=== PATIENT | male | born 1930 | race Caucasian/White ===

== ENCOUNTER 2017-07-03 15:21 | Observation (INO) | payer MEDICARE, OTHER ==
[2017-07-03] MEDS ORDERED: Potassium Chloride 20 MEQ TAB ONE (15:41)
[2017-07-03 16:11] LABS: #Eosinphils 0.1 thou/uL (0.0-0.7); #Lymphocytes 1.4 thou/uL (1.20-3.40); #Monocytes 0.4 thou/uL (0.11-0.59); #Neutrophils 5.6 thou/uL (1.40-6.50); %Basophils 0.5 % (0.0-1.0); %Eosinophils 1.6 % (0.0-10.0); %Lymphocytes 18.9 % (21.0-51.0); %Monocytes 5.5 % (0.0-10.0); Hematocrit 35.1 % (42.0-52.0); Mean Platelet Volume 8.6 fL (7.4-10.4); Red Blood Cell (RBC) Count 3.59 mill/uL (4.70-6.10); White Blood Cell (WBC) Count 7.6 thou/uL (4.8-10.8)
[2017-07-03 16:17] LABS: ALT (SGPT) 16 U/L (8-55); AST (SGOT) 14 U/L (5-34); Alkaline Phosphatase 81 U/L (40-150); Anion Gap 13 mmol/L (10-20); BUN (Urea Nitrogen) 10 mg/dL (8.4-25.7); Bilirubin, Total 0.6 mg/dL (0.2-1.2); CK (CPK) 81 U/L (30-200); Calc. Creatinine Clearance 0 mL/min (70-130); Calcium 8.4 mg/dL (7.8-10.44); Carbon Dioxide 33 mmol/L (23-31); Chloride 99 mmol/L (98-107); Estimated GFR-MDRD 58; Globulin 3.2 g/dL (2.4-3.5); Lipase 18 U/L (8-78); Protein, Total 6.9 g/dL (5.8-8.1)
[2017-07-03 16:20] LABS: Troponin I Less than 0.010 ng/mL (< 0.028)
--- NOTE | 2017-07-03 16:47 | RAD ---
PORTABLE AP CHEST X-RAY: 07/03/2017 HISTORY: Dizziness. Syncope. COMPARISON: 03/23/2016 FINDINGS: The patient is rotated to the right, which accentuates the cardiac silhouette, in addition to the po rtable technique of the study. The cardiac silhouette is probably mildly enlarged. There are linea r densities at the right lung base, which may be related to mild scarring. There is epicardial fat pad at the left lung base, with probable mild atelectasis. The pulmonary vasculature is within norm al limits. Vascular calcifications are seen in the thoracic aorta. No other interval change. IMPRESSION: 1. No acute cardiopulmonary process. 2. Atelectasis at each lung base. POS: [facility]
--- NOTE | 2017-07-03 16:56 | CT ---
CT HEAD WITHOUT CONTRAST: Technique: Multiple axial tomograms were obtained through the head without IV enhancement. History: Syncope. FINDINGS: Ventricles have normal size and position. Mild chronic ischemic white matter change. There is irregularly shaped low density mass like lesion in the corpus callosum posteriorly in the m idline measuring 1.2 cm AP dimension x approximately 1.5 cm width in the axial plane. This lesion ex hibits fat density with Hounsfield units measured in the minus 30-40 range. Lipoma in the corpus sarah losum in the midline posteriorly would be suspected. There is no evidence of acute mass or infarct. There is no evidence of hemorrhage. IMPRESSION: 1. Mild chronic ischemic white matter changes. 2. 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 3. No acute abnormality. POS: [facility]
[2017-07-03 17:15] LABS: Bilirubin Negative (Negative); Blood, Urine Trace (Negative); Glucose, Urine (Dipstick) Negative (Negative); Ketone, Urine Negative (Negative); Nitrite Negative (Negative); Protein, Urine (Dipstick) Trace mg/dL (Neg-Trace); Urobilinogen 0.2 mg/dL (0.2-1.0)
[2017-07-03 17:22] LABS: RBC/HPF 0-3 HPF (0-3); Squamous Epithelial 0-3 HPF (0-3); WBC/HPF 0-3 HPF (0-3)
[2017-07-03] MEDS ORDERED: NS 0.9% w/ 20 MEQ KCL 1,000 ML ONE (17:55)
[2017-07-03 20:35] VITALS: BMI 32.2
[2017-07-03 20:40] LABS: Troponin I Less than 0.010 ng/mL (< 0.028)
[2017-07-03] MEDS ORDERED: NS 0.9% w/ 20 MEQ KCL 1,000 ML IV SCH (21:45)
[2017-07-03] MEDS ORDERED: Aspirin 325 MG TAB PO SCH (22:00)
[2017-07-03] MEDS ORDERED: Ondansetron ODT 4 MG TAB PO PRN (22:01)
[2017-07-03] MEDS ORDERED: HYDROcodone/Acetaminophen 10/325 mg Tablet PO PRN (22:01)
[2017-07-03] MEDS ORDERED: HYDROcodone/Acetaminophen 5/325 mg Tablet PO PRN (22:01)
[2017-07-03] MEDS ORDERED: Acetaminophen 325 MG TAB PO PRN (22:01)
[2017-07-03] MEDS ORDERED: Atorvastatin Calcium 20 MG TAB PO SCH (22:15)
[2017-07-03] MEDS ORDERED: Carvedilol 6.25 MG TAB PO SCH (22:15)
[2017-07-03] MEDS ORDERED: levETIRAcetam 500 MG TAB PO SCH (22:15)
[2017-07-03] MEDS ORDERED: Allopurinol 100 MG TAB PO SCH (22:15)
[2017-07-03] MEDS: Potassium Chloride 20 MEQ TAB PO SCH (22:36)
[2017-07-03 23:23] LABS: Troponin I Less than 0.010 ng/mL (< 0.028)
--- NOTE | 2017-07-04 01:03 | HP ---
PRIMARY CARE PHYSICIAN: Not listed. PRIMARY CERTIFIED PEDIATRIC NURSE PRACTITIONER: Dr. Velazquez. CHIEF COMPLAINT: Low potassium. HISTORY OF PRESENT ILLNESS: Mr. Singh is a pleasant 86-year-old gentleman with history of seizure disorder, sleep apnea, hypertension, and prior DVT, who is seen by Dr. Velazquez on a regular basis . Today, he had labs drawn, I was called by nursing staff. I told him to go straight to the ER for un known reason. On arrival to the ER, his labs were checked, records reviewed, and then found to have a potassium ea rlier today of 2.6 and 2.7 on recheck. We were subsequently called for admission. Patient denies any chest pain or difficulty breathing, no nausea, vomiting, diarrhea, constipation. He has 2-month history of spells of lightheadedness that seemed to be sporadic. He has not actuall y fallen and has not had any injuries. Denies any other current complaints. No fevers or chills. No diarrhea, constipation, nausea, vomit ing. PAST MEDICAL HISTORY: 1. Seizure disorder. 2. Obstructive sleep apnea. 3. Hypothyroidism. 4. Hypertension. 5. History of melanoma. 6. Prostate cancer. 7. Deep venous thrombosis. 8. Gout. PAST SURGICAL HISTORY: Include, 1. Melanoma removal x2 from the right ear and right cheek. 2. Prostatectomy, lymph node status unknown. 3. Hemorrhoidectomy. 4. Bilateral cataract replacement. 5. Left-arm surgery. 6. Pilonidal cyst. HOME MEDICATIONS: 1. Coreg 6.25 mg p.o. b.i.d. 2. Budesonide 3 mg p.o. daily. 3. Levothyroxine 50 mcg daily. 4. Niaspan 500 mg at bedtime. 5. Atorvastatin 20 mg p.o. at bedtime. 6. Allopurinol 100 mg daily. 7. Aspirin 325 mg daily. 8. Benicar HCT 20/12.5 daily. 9. Diphenoxylate/atropine 2.5/0.025 one q.a.m. 10. Iron sulfate 325 mg x2 daily. 11. Isosorbide mononitrate XR 30 mg daily. 12. Keppra 500 mg p.o. b.i.d. 13. Symbicort 160/4.5 two puffs b.i.d. 14. Fludrocortisone 0.1 mg p.o. q.a.m. ALLERGIES: NKDA. FAMILY HISTORY: Negative for clotting or bleeding disorder or no immune dysfunction. SOCIAL HISTORY: Negative for habits x3. He is and his accompanies him. REVIEW OF SYSTEMS: A 10-point review of systems was performed and negative for all other systems ex cept as stated as per HPI. PHYSICAL EXAMINATION: VITAL SIGNS: Temperature 97.9, pulse 70, blood pressure 165/72, respiratory rate 18, satting 97% on room air. GENERAL: He is awake. He is alert. He is oriented x3. He is an obese, well-developed, well-bebeto shed, white male who appears to be in zero distress. HEENT: Normocephalic, atraumatic. Pupils equal, round, and reactive bilaterally, mucous membranes are moist. He has no visible lesions. No thrush. NECK: Supple with no lymphadenopathy, no JVD. No thyromegaly. He has normal carotid upstroke. Th ere is no bruits. LUNGS: Clear anteriorly and posteriorly. He has symmetrical chest movement and good air exchange. He has no wheezes or rales. No prolonged expiratory phase. CARDIOVASCULAR: He has normal S1, S2, no S3 or S4. ABDOMEN: Obese, it is nontender, nondistended with normoactive bowel sounds present in all 4 quadra nts. There is no rebound, rigidity, or guarding. EXTREMITIES: Show no cyanosis, no clubbing with trace pedal edema. He has 1+ dorsalis pedis and po sterior tibial pulses. NEUROLOGIC: Shows cranial nerves II through XII are grossly intact with no focal neurologic deficit s, normal speech, 5/5 strength in all 4 extremities. MUSCULOSKELETAL: Exam is normal to inspection. He has no inflamed or hot joints. He has no palpab le joint effusion. SKIN: Warm, moist, and well-perfused. There is no rash or lesions. LABORATORY DATA: CMP is normal except for potassium of 2.7, 2.6 earlier today. Creatinine 1.18. S ugars 143 and liver functions normal. White blood cell count 7.6, hemoglobin 11.8, hematocrit 35.1, platelets of 110,000. RADIOGRAPHIC STUDIES: He had a brain CT that showed possible lipoma and age related changes. Chest x-ray showed no acute cardiopulmonary disease. ASSESSMENT AND PLAN: 1. Hypokalemia: Cause not quite clear. We will check repeat labs in the morning including magnesi um level. We will replace as indicated. In the meantime, he got 60 mEq of potassium in the ER, manas t was around 7 to 8 hours ago. We will continue 40 mEq p.o. every 4 hours for 3 more doses. The pa clyde is currently on Benicar HCT. HCT could theoretically drop his magnesium level, which could he lp with his potassium. He is not on any Lasix. He is metabolically, otherwise intact. 2. History of seizures: on Keppra 500 b.i.d. We will continue. 3. Sleep apnea, takes CPAP at home, settings unknown. We will not order tonight. 4. Hypothyroidism on levothyroxine, which we will continue. 5. Hypertension on Coreg, Benicar HCT, isosorbide mononitrate. We will continue these. 6. Probable chronic obstructive pulmonary disease on budesonide, Symbicort. We will continue these . We will notify Dr. Velazquez about the patient's admit.
[2017-07-04] MEDS: Potassium Chloride 20 MEQ TAB PO SCH ×2 (02:35→05:57)
[2017-07-04 05:33] LABS: #Eosinphils 0.2 thou/uL (0.0-0.7); #Monocytes 0.5 thou/uL (0.11-0.59); #Neutrophils 3.1 thou/uL (1.40-6.50); %Basophils 0.6 % (0.0-1.0); %Eosinophils 3.4 % (0.0-10.0); %Monocytes 9.2 % (0.0-10.0); Hematocrit 36.6 % (42.0-52.0); Mean Platelet Volume 8.6 fL (7.4-10.4); Red Blood Cell (RBC) Count 3.63 mill/uL (4.70-6.10); White Blood Cell (WBC) Count 5.9 thou/uL (4.8-10.8)
[2017-07-04 05:37] LABS: Anion Gap 11 mmol/L (10-20); BUN (Urea Nitrogen) 9 mg/dL (8.4-25.7); Calc. Creatinine Clearance 92 mL/min (70-130); Calcium 8.3 mg/dL (7.8-10.44); Carbon Dioxide 30 mmol/L (23-31); Chloride 103 mmol/L (98-107); Estimated GFR-MDRD 79; Magnesium 1.2 mg/dL (1.6-2.6)
[2017-07-04] MEDS ORDERED: Levothyroxine Sodium 50 MCG TAB PO SCH (06:00)
[2017-07-04] MEDS ORDERED: Potassium Chloride 40 MEQ in Sodium Chloride 0.9% 500 ML IVPB SCH (06:15)
[2017-07-04] MEDS ORDERED: Mometasone/Formoterol 120 PUFF INHALER INH SCH (06:30)
[2017-07-04] MEDS ORDERED: Magnesium Sulfate 4 GM in Sodium Chloride 0.9% 250 ML 250 ML IVPB SCH (07:00)
[2017-07-04] MEDS ORDERED: Ferrous Sulfate 325 MG TAB PO SCH (08:00)
[2017-07-04 08:19] VITALS: TEMP 98.3
[2017-07-04] MEDS ORDERED: Allopurinol 100 MG TAB PO SCH (09:00)
[2017-07-04] MEDS ORDERED: Enoxaparin Sodium 30 MG/0.3 ML SYRINGE SC SCH (09:00)
[2017-07-04] MEDS ORDERED: Aspirin 325 mg Enteric Coated Tablet PO SCH (09:00)
[2017-07-04] MEDS ORDERED: levETIRAcetam 500 MG TAB PO SCH (09:00)
[2017-07-04] MEDS ORDERED: Diphenoxylate HCl/Atropine Tablet PO SCH (09:00)
[2017-07-04] MEDS ORDERED: Famotidine 20 MG TAB PO SCH (09:00)
[2017-07-04] MEDS ORDERED: Carvedilol 6.25 MG TAB PO SCH (09:00)
[2017-07-04] MEDS ORDERED: Atorvastatin Calcium 20 MG TAB PO SCH (09:00)
[2017-07-04] MEDS ORDERED: Fludrocortisone Acetate 0.1 MG TAB PO SCH (09:00)
[2017-07-04 10:33] LABS: Magnesium 1.3 mg/dL (1.6-2.6)
--- NOTE | 2017-07-04 12:28 | DIS ---
DATE OF ADMISSION: 07/03/2017 DATE OF DISCHARGE: 07/04/2017 PRIMARY CARE PHYSICIAN: Sagar Varela M.D. DISCHARGE DIAGNOSES: 1. Hypokalemia, resolved. 2. Hypomagnesemia, magnesium supplementation started. CONDITION OF PATIENT AT THE TIME OF DISCHARGE: Stable. I assessed Mr. Singh on the day of discharge. He denies any chest pain or shortness of breath. V ital signs are stable. S1 and S2 are heard, regular. Lungs are clear to auscultation bilaterally. DISCHARGE MEDICATIONS: In addition to the home medications as listed on the history and physical no te from 07/03/2017, he is being started on magnesium oxide 400 mg 2 times a day for 5 more days. HOSPITAL COURSE: Mr. Singh is a pleasant 86-year-old gentleman, who was admitted to [facility] on observation status on 07/03/2017 for hypokalemia. He was also found to be h ypomagnesemic. He received potassium supplements, and potassium improved to 4.1 on 07/04/2017, up f rom 2.6 on 07/03/2017. His magnesium was also found to low to 1.3. He is currently receiving intra venous magnesium and also being started on magnesium oxide orally prior to discharge. He is advised to follow up with his primary care physician in 5 to 7 days. On the day of discharge, Mr. Singh has white count 5900, hemoglobin 12.3, platelet count 101,000, sodium 141, potassium 4.1, and creatinine 0.91. He had normal troponins during this hospitalization . Many thanks for allowing me to participate in your patient's care. Please feel free to contact me w ith any questions or concerns. DISCHARGE DESTINATION: Home.
[2017-07-04 12:53] VITALS: BP 164/74
[2017-07-04] MEDS ORDERED: Magnesium Oxide 400 MG TAB PO SCH (21:00)
--- OUTSIDE RECORDS SUMMARY | 2017-07-10 08:36 | XMS | Clinical Summary ---
:1930 Author Organization [facility] Address [address] [place] [address] Phone Care Team Providers Name Role Phone Asked, None Primary Care Provider Unavailable Allergies No Known Allergies Current Medications Prescription Sig. Disp. Refills Start Date End Date Status PROVENTIL HFA 90 INHALE TWO (2) 0 09/08/2015 Active mcg/actuation inhaler PUFF(S) BY MOUTH EVERY 6 HOURS NEEDED. olmesartan-hydrochlorothi Take 1 tablet by Active azide (BENICAR HCT) mouth daily. 20-12.5 mg per tablet carvedilol (COREG) 6.25 Take 6.25 mg by Active MG tablet mouth 2 (two) times a day with meals. niacin (NIASPAN) 500 MG Take 500 mg by Active CR tablet mouth every morning. aspirin (ECOTRIN) 81 MG Take 81 mg by mouth Active enteric coated tablet nightly. phenytoin (DILANTIN) 100 Take 100 mg by Active MG ER capsule mouth nightly. 3 cap budesonide EC (ENTOCORT Take 6 mg by mouth Active EC) 3 mg 24 hr capsule every morning. chlorhexidine (PERIDEX) Apply 15 mL to the Active 0.12 % solution mouth or throat 2 (two) times a day. rivaroxaban (XARELTO) Take 20 mg by mouth Active tablet daily. levothyroxine (SYNTHROID, Take 50 mcg by Active LEVOTHROID) 50 MCG tablet mouth every morning. fluticasone-salmeterol Inhale 1 puff as Active (ADVAIR) 250-50 mcg/dose needed. DISKUS diphenoxylate-atropine Take 1 tablet by Active (LOMOTIL) 2.5-0.025 mg mouth daily. per tablet efinaconazole 10 % Apply topically Active solution with applicator daily. allopurinol (ZYLOPRIM) Take 100 mg by Active 100 MG tablet mouth daily. 2 tab atorvastatin (LIPITOR) 20 Take 20 mg by mouth Active MG tablet daily. fludrocortisone 0.1 mg 01/18/2017 Active tablet Active Problems Problem Noted Date Male urinary stress incontinence 12/16/2015 Malignant neoplasm of prostate 12/16/2015 Mechanical complication of genitourinary device, implant, and graft 12/16/2015 Social History Tobacco Use Types Packs/Day Years Used Date Never Smoker Smokeless Tobacco: Never Used Alcohol Use Drinks/Week oz/Week Comments No Sex Assigned at Date Recorded Not on file Last Filed Vital Signs Vital Sign Reading Time Taken Blood Pressure 128/73 12/16/2015 2:55 PM CDT Pulse 82 12/16/2015 2:55 PM CDT Temperature 36.1 C (97 F) 12/16/2015 2:55 PM CDT Respiratory Rate - - Oxygen Saturation - - Inhaled Oxygen Concentration - - Weight 108 kg (238 lb 12.8 oz) 12/16/2015 2:55 PM CDT Height 188 cm (6' 2") 12/16/2015 2:55 PM CDT Body Mass Index 30.66 12/16/2015 2:55 PM CDT Plan of Treatment Date Type Specialty Care Team Description 02/14/2018 Office Visit Urology Rasta Alonzo MD [address] [facility] [address] [place] [address] Health Maintenance Due Date Last Done Comments ZOSTER VACCINE 1989 PNEUMOCOCCAL POLYSACCHARIDE VACCINE AGE 65 AND OVER 1994 PNEUMOCOCCAL-13 1994 INFLUENZA VACCINE 04/18/2017 Results Not on filefrom Last 3 Months Insurance Payer Benefit Plan / Group Subscriber ID Type Phone Address MEDICARE MEDICARE PART A AND B [id number] Medicare [place], [place] [id number] Home: [phone] [phone] [id number]
== END 2017-07-04 13:49 | disposition home or self-care (01) ==
LOC: SCSER 15:21 → 2SW 19:29
PROVIDERS: ADMIT Internal Medicine; ATTEND Internal Medicine
DX: E87.6 Hypokalemia (principal); E83.42 Hypomagnesemia; G40.909 Epilepsy, unspecified, not intractable, without status epilepticus; I10 Essential (primary) hypertension; I82.409 Acute embolism and thrombosis of unspecified deep veins of unspecified lower extremity; J98.11 Atelectasis; M10.9 Gout, unspecified; G47.33 Obstructive sleep apnea (adult) (pediatric); E03.9 Hypothyroidism, unspecified; Z99.89 Dependence on other enabling machines and devices; Z79.82 Long term (current) use of aspirin; Z79.51 Long term (current) use of inhaled steroids; Z79.899 Other long term (current) drug therapy; Z98.42 Cataract extraction status, left eye; Z98.41 Cataract extraction status, right eye; Z96.1 Presence of intraocular lens; Z90.79 Acquired absence of other genital organ(s); Z98.890 Other specified postprocedural states; Z85.820 Personal history of malignant melanoma of skin; Z85.46 Personal history of malignant neoplasm of prostate
CPT/HCPCS: 70450; 71010; 80048; 80053 ×2; 80061; 82550; 82553; 83690; 83735; 84132; 84484 ×2; 85025 ×2; 93005; 94640; 96365; 96366 ×2; 96372; 96375; 99285; G0378; 36415; 81003; 81015; J0360; J1650; J3475; J3480; J7050

== ENCOUNTER 2017-08-14 13:41 | Emergency (ER) | payer MEDICARE, OTHER ==
--- NOTE | 2017-08-14 14:56 | RAD ---
2 VIEWS RIGHT HIP: Date: 08/14/17 HISTORY: Right hip joint pain. FINDINGS: There is no evidence of a fracture or dislocation. No joint space narrowing is identified. Multiple s urgical clips overlie the pelvis. Degenerative changes are seen at the lumbosacral junction. There ar e metallic densities overlying the soft tissues inferior to the pubic symphysis. This may be related to prior postsurgical change. IMPRESSION: No acute osseous abnormality right hip. POS: [facility]
== END 2017-08-14 15:57 | disposition home or self-care (01) ==
LOC: SCSER 13:41
DX: S76.011A Strain of muscle, fascia and tendon of right hip, initial encounter (principal); E03.9 Hypothyroidism, unspecified; I10 Essential (primary) hypertension; M10.9 Gout, unspecified; W01.0XXA Fall on same level from slipping, tripping and stumbling without subsequent striking against object, initial encounter; Y92.002 Bathroom of unspecified non-institutional (private) residence as the place of occurrence of the external cause

== ENCOUNTER 2018-11-01 11:55 | Outpatient (CLI) | payer MEDICARE, OTHER ==
--- NOTE | 2018-11-01 15:50 | MRI ---
MRI LUMBAR SPINE WITHOUT CONTRAST: HISTORY: Spinal stenosis. COMPARISON: None. TECHNIQUE: MRI lumbar spine is performed without intravenous Gadolinium administration. Multisequential, multip lanar imaging is performed. FINDINGS: There is appropriate signal intensity of the psoas muscles. The visualized solid organs are unremark able. There is an incompletely evaluated T2 hyperintensity in the lower pole of the right kidney. Conus medullaris terminates at the T12-L1 disk space level. Appropriate T1 marrow signal intensity of lumbar vertebrae. Lumbar spine vertebral body height is ma intained. There is no fracture. No significant STIR hyperintensity to suggest vertebral body edema or ligamentous injury. T12-L1: Adequate disk hydration. No significant central canal stenosis or foraminal narrowing. L1-L2: Adequate disk hydration. No significant central canal stenosis. Neural foramen are patent. Mild facet hypertrophy and ligamentum flavum thickening. L2-L3: Adequate disk hydration. No significant loss of disk space height or significant posterior d isk abnormality. There is ligamentum flavum thickening and fact hypertrophy with resultant mild cent ral canal stenosis. Neural foramina are patent bilaterally. L3-L4: Mild loss of disk space height. Generalized disk bulge, ligamentum flavum thickening and fac et hypertrophy result in mild central canal stenosis. Mild right and mild to moderate left foraminal narrowing. L4-L5: Moderate loss of disk space height. There is a generalized disk bulge, ligamentum flavum thi ckening, and facet hypertrophy. There is no significant stenosis of the thecal sac. However, there is narrowing of the right subarticular zone secondary to disk material and facet hypertrophy. There is obscuration of the traversing right L5 nerve root. Moderate to severe right and moderate left for aminal narrowing. L5-S1: Minimal disk desiccation without significant loss of disk space height. No significant centr al canal stenosis. Mild bilateral foraminal narrowing. 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 There is obscuration of the traversing right L5 nerve root secondary to disk material and posttraumatic hypertrophy resulting in narrowing of the ri ght subarticular zone at L4-L5. POS: [facility]
== END 2018-11-01 11:56 | disposition home or self-care (01) ==
LOC: SCSMRI 11:55
PROVIDERS: ATTEND Psychiatry & Neurology Neurology
DX: M48.061 Spinal stenosis, lumbar region without neurogenic claudication (principal); G40.409 Other generalized epilepsy and epileptic syndromes, not intractable, without status epilepticus; M47.816 Spondylosis without myelopathy or radiculopathy, lumbar region
CPT/HCPCS: 72148

== ENCOUNTER 2018-11-12 11:44 | Emergency (ER) | payer MEDICARE, OTHER | END 2018-11-12 13:30 | disposition home or self-care (01) | LOC: SCSER 11:44 | DX: N39.0 Urinary tract infection, site not specified (principal); G47.30 Sleep apnea, unspecified; I10 Essential (primary) hypertension; E03.9 Hypothyroidism, unspecified; M10.9 Gout, unspecified; Z86.718 Personal history of other venous thrombosis and embolism; Z79.899 Other long term (current) drug therapy; Z79.82 Long term (current) use of aspirin | CPT/HCPCS: 93005 ==

== ENCOUNTER 2019-05-24 12:48 | Outpatient (CLI) | payer MEDICARE, OTHER ==
--- NOTE | 2019-05-24 13:32 | RAD ---
Chest 2 views HISTORY: Stress incontinence. Preop. COMPARISON: 03/23/2016. Is upper limits of normal in size. Pulmonary vasculature is unremarkable. Lungs remain hyperinflated. Mediastinum is midline with aortic calcification confluent airspace consolidation, pneumothorax, or pleural fluid are apparent. Ossification of the anterior longitudinal ligament of the thoracic spi ne on the lateral view is consistent with diffuse idiopathic skeletal hyperostosis. IMPRESSION: Atherosclerosis. Pulmonary Hyperinflation. Chronic-type findings are stable.
== END 2019-05-24 12:49 | disposition home or self-care (01) ==
LOC: EKG 12:48 → RAD 12:49
PROVIDERS: ATTEND Urology
DX: Z01.818 Encounter for other preprocedural examination (principal); N39.3 Stress incontinence (female) (male); I70.90 Unspecified atherosclerosis
CPT/HCPCS: 71046